=== PATIENT | female | born 1985 | race Caucasian/White ===

== ENCOUNTER 2021-09-05 13:23 | Emergency (ER) | payer MEDICAID ==
[~2021-09-05] VITALS: Ht 160 cm; Wt 90.6 kg
[2021-09-05] MEDS ORDERED: VENTOLIN HFA18 GM INH (15:46)
[2021-09-05] MEDS ORDERED: PREDNISONE20 MG PO (15:46)
== END 2021-09-05 15:57 | disposition home or self-care (01) ==
LOC: ED 13:23
DX: J45.901 Unspecified asthma with (acute) exacerbation (principal); Z20.822 Contact with and (suspected) exposure to COVID-19
CPT/HCPCS: 94640; 94664; 99284; C9803; J7512; U0003

== ENCOUNTER 2022-01-28 23:23 | Emergency (ER) | payer MEDICAID ==
[~2022-01-28] VITALS: Ht 160 cm; Wt 90.5 kg
[~2022-01-28 23:23] MED LIST: PREDNISONE20 MG PO; VENTOLIN HFA18 GM INH
--- NOTE | 2022-01-31 14:22 | EKG ---
[facility] [address] [facility] [place], [place] [address] Signed Normal sinus rhythm Normal ECG No previous ECGs available Confirmed by ЕКАТЕРИНА HU MD ([id number]) on 01/31/2022 2:22:20 PM Electronically Signed By: ЕКАТЕРИНА HU MD 01/31/221421 PATIENT NAME: LJ CARRANZA Electrocardiogram DATE OF : 83 PHYSICIAN: ЕКАТЕРИНА HU MD REPORT #: [id number] REPORT IS CONFIDENTIAL AND NOT TO BE RELEASED WITHOUT AUTHORIZATION
== END 2022-01-29 00:46 | disposition home or self-care (01) ==
LOC: ED 23:23
DX: J10.1 Influenza due to other identified influenza virus with other respiratory manifestations (principal); J44.9 Chronic obstructive pulmonary disease, unspecified; Z20.822 Contact with and (suspected) exposure to COVID-19
CPT/HCPCS: 36415; 71045; 80053; 84484; 85025; 93005; 93010; 99285-25; A9270; C9803; U0003

== ENCOUNTER 2023-03-10 16:02 | Emergency (ER) | payer OTHER ==
[~2023-03-10] VITALS: Ht 160 cm; Wt 95.2 kg
[2023-03-10] MEDS ORDERED: HYDROCODON-ACE1 EA10 PO (17:18)
[2023-03-10 17:35] VITALS: BP 110/80
== END 2023-03-10 17:50 | disposition home or self-care (01) ==
LOC: ED 16:02
DX: S31.010A Laceration without foreign body of lower back and pelvis without penetration into retroperitoneum, initial encounter (principal); J44.9 Chronic obstructive pulmonary disease, unspecified; W26.8XXA Contact with other sharp object(s), not elsewhere classified, initial encounter
CPT/HCPCS: 36415; 74177; 80053; 84703; 85025; 86850; 86900; 86901; 90471; 90715; 99284-25; G0480; Q9967